=== PATIENT | male | born 1990 | race African-American/Black ===

== ENCOUNTER 2022-07-03 12:59 | Inpatient (IN) ==
[2022-07-03 13:36] LABS: Bilirubin,Urine Negative (Negative); Blood,Urine Negative (Negative); Clarity,Urine Clear (Clear); Color,Urine Light-Yellow (Yellow); Glucose,Urine (UA) Normal (Normal); Ketones,Urine Negative (Negative); Leukocyte Esterase,Urine Negative (Negative); Nitrite,Urine Negative (Negative); PH,Urine 7.5 pH Units (5.0-8.0); Protein,Urine Trace mg/dL (Neg-Trace); Specific Gravity,Urine 1.009 (1.010-1.025); Urobilinogen,Urine Normal (Normal)
[2022-07-03 13:48] LABS: Basophils # 0.1 K/mcL (0.0-0.2); Basophils % 1.3 %; Eosinophils % 0.4 %; Immature Granulocytes % 0.4 % (0-4); Lymphocytes % 18.4 %; Mean Corpuscular HGB Conc 34.6 g/dL (31.6-35.5); Mean Corpuscular Hemoglobin 29.5 pg (28.0-33.3); Mean Corpuscular Volume 85.2 fL (83.0-100.0); Mean Platelet Volume 9.9 fL (9.4-12.4); Monocytes # 0.5 K/mcL (0.0-1.3); Monocytes % 9.9 %; Neutrophils # 3.8 K/mcL (1.6-8.9); Platelet Count 312 K/mcL (140-400); Segmented Neutrophils % 69.6 %; White Blood Count 5.4 K/mcL (4.3-11.1)
[2022-07-03 13:56] LABS: Amphetamine Screen,Urine Negative ng/mL (Cutoff=1000); Barbiturate Screen,Urine Negative ng/mL (Cutoff=200); Benzodiazepines Screen,Urine Negative ng/mL (Cutoff=200); Cannabinoid Screen,Urine Negative ng/mL (Cutoff = 50); Cocaine Screen,Urine Negative ng/mL (Cutoff= 300); Opiate Screen,Urine Negative ng/mL (Cutoff=300); Phencyclidine Screen,Urine Negative ng/mL (Cutoff=25)
[2022-07-03 14:07] LABS: Acetaminophen < 10 mcg/mL (10-20); BUN/Creatinine Ratio 7 (6-26); Blood Urea Nitrogen 7 mg/dL (6-20); Calcium 8.6 mg/dL (8.6-10.3); Carbon Dioxide 29 mEq/L (23-29); Chloride 99 mEq/L (98-107); Ethanol 207 mg/dL (Less than 10); Glucose 114 mg/dL (70-105); Osmolality,Calculated 285 (280-300); Potassium 3.9 mEq/L (3.5-5.1); Salicylate < 2.5 mg/dL (15.0-30.0); Sodium 138 mEq/L (136-145)
[2022-07-03] MEDS ORDERED: *HR* LORazepam 2 MG/ML VIAL IM ONE (19:42)
[2022-07-04] MEDS ORDERED: *HR* LORazepam 1 MG TABLET PO ONE (00:41)
[2022-07-04 07:00] LABS: Influenza A PCR Negative (Negative); Influenza B PCR Negative (Negative); Resp. Syncytial Virus PCR Negative (Negative)
[2022-07-04 07:02] LABS: SARS-CoV-2 by PCR (In House) Negative (Negative)
[2022-07-04] MEDS ORDERED: *HR* LORazepam 1 MG TABLET PO STA (07:03)
[2022-07-04] MEDS ORDERED: Acetaminophen 325 MG TABLET PO PRN (09:24)
[2022-07-04] MEDS ORDERED: hydrOXYzine pamoate 25 MG CAPSULE PO PRN (09:24)
[2022-07-04] MEDS ORDERED: haloperidoL 5 MG TABLET PO PRN (09:24)
[2022-07-04] MEDS ORDERED: Haloperidol Lactate 5 MG/ML VIAL IM PRN (09:24)
[2022-07-04] MEDS ORDERED: *HR* LORazepam 2 MG/ML VIAL IM PRN (09:24)
[2022-07-04] MEDS ORDERED: *HR* LORazepam 1 MG TABLET PO PRN (09:24)
[2022-07-04] MEDS: Thiamine (B-1) 100 MG TABLET PO SCH (11:15)
[2022-07-04] MEDS: Vitamin B Complex/Vit C/Vit E 1 EACH TABLET PO SCH (11:15)
[2022-07-04] MEDS: *HR* LORazepam 1 MG TABLET PO SCH ×3 (11:16→20:43)
[2022-07-04] MEDS: Folic Acid 1 MG TABLET PO SCH (11:16)
[2022-07-04] MEDS ORDERED: MOM Conc 10 ML UD.LIQ PO PRN (12:02)
[2022-07-04] MEDS ORDERED: Mag Hydrox/Al Hydrox/Simeth 30 ML UDC PO PRN (12:02)
[2022-07-05] MEDS: Folic Acid 1 MG TABLET PO SCH (08:28)
[2022-07-05] MEDS: *HR* LORazepam 1 MG TABLET PO SCH ×3 (08:28→20:46)
[2022-07-05] MEDS: Vitamin B Complex/Vit C/Vit E 1 EACH TABLET PO SCH (08:30)
[2022-07-05] MEDS: Thiamine (B-1) 100 MG TABLET PO SCH (08:30)
[2022-07-05] MEDS ORDERED: Nicotine 2 MG GUM BC SCH (20:00)
[2022-07-05] MEDS: Nicotine 2 MG GUM BC PRN (20:16)
[2022-07-05] MEDS: traZODone 50 MG TABLET PO PRN (20:42)
[2022-07-06] MEDS: Nicotine 2 MG GUM BC PRN ×4 (07:24→20:50)
[2022-07-06] MEDS: Folic Acid 1 MG TABLET PO SCH (08:59)
[2022-07-06] MEDS: Vitamin B Complex/Vit C/Vit E 1 EACH TABLET PO SCH (09:00)
[2022-07-06] MEDS: Thiamine (B-1) 100 MG TABLET PO SCH (09:00)
[2022-07-06] MEDS: *HR* LORazepam 1 MG TABLET PO SCH ×4 (09:00→20:41)
[2022-07-06] MEDS: traZODone 50 MG TABLET PO PRN (20:42)
[2022-07-07] MEDS: Vitamin B Complex/Vit C/Vit E 1 EACH TABLET PO SCH (08:11)
[2022-07-07] MEDS: Thiamine (B-1) 100 MG TABLET PO SCH (08:11)
[2022-07-07] MEDS: Folic Acid 1 MG TABLET PO SCH (08:11)
[2022-07-07] MEDS: *HR* LORazepam 1 MG TABLET PO SCH ×3 (08:12→21:05)
[2022-07-07] MEDS: Nicotine 2 MG GUM BC PRN ×4 (08:14→21:05)
[2022-07-07] MEDS: traZODone 50 MG TABLET PO PRN (21:05)
[2022-07-08] MEDS: *HR* LORazepam 1 MG TABLET PO SCH (08:06)
[2022-07-08] MEDS: Thiamine (B-1) 100 MG TABLET PO SCH (08:06)
[2022-07-08] MEDS: Folic Acid 1 MG TABLET PO SCH (08:06)
[2022-07-08] MEDS: Vitamin B Complex/Vit C/Vit E 1 EACH TABLET PO SCH (08:06)
[2022-07-08] MEDS: Nicotine 2 MG GUM BC PRN (08:12)
[2022-07-08] MEDS ORDERED: Metoprolol XL (24 HR) Succ 25 MG TAB.ER.24H PO SCH (09:00)
[2022-07-08 09:23] VITALS: BP 145/103; PULSE 92; TEMP 97.8; O2SAT 99
== END 2022-07-08 11:04 | disposition home or self-care (01) | DRG 885 ==
LOC: EMEROOARM 12:59 → 1ANU 07-04 08:13
PROVIDERS: ADMIT Psychiatry & Neurology Psychiatry; ATTEND Psychiatry & Neurology Psychiatry